=== PATIENT | male | born 1950 | race Caucasian/White ===

== ENCOUNTER → 2017-09-07 | Outpatient (CLI) | payer MEDICARE, OTHER ==
[~2017-09-07] MED LIST: IODIXANOL LOCM 100 ML BTL; IODIXANOL LOCM 50 ML BTL; SOD CHLORIDE 0.9% 100 ML
[2017-09-07 16:44] LABS: BLOOD UREA NITROGEN 37 mg/dl (7-20)
[2017-09-07 16:44] LABS: CREATININE 1.55 mg/dl (0.61-1.24)
== END | disposition home or self-care (01) ==
LOC: LAB 16:03
DX: I73.9 Peripheral vascular disease, unspecified (principal)
CPT/HCPCS: 73700; 82565; 84520

== ENCOUNTER → 2017-09-15 | Outpatient (CLI) | payer MEDICARE, OTHER | END | disposition home or self-care (01) | LOC: U/S 12:39 | DX: N28.89 Other specified disorders of kidney and ureter (principal) | CPT/HCPCS: 76775 ==

== ENCOUNTER → 2018-06-01 | Outpatient (CLI) | payer MEDICARE, OTHER | END | disposition home or self-care (01) | LOC: C/S 15:53 | DX: N28.89 Other specified disorders of kidney and ureter (principal) | CPT/HCPCS: 74150 ==

== ENCOUNTER → 2018-08-27 | Outpatient (CLI) | payer MEDICARE, OTHER | END | disposition home or self-care (01) | LOC: C/S 16:43 | DX: R10.32 Left lower quadrant pain (principal); R10.31 Right lower quadrant pain | CPT/HCPCS: 72192 ==